=== PATIENT | male | born 1940 | race Caucasian/White ===

== ENCOUNTER 2019-09-29 10:22 | Emergency (ER) | payer MEDICARE, SELFPAY ==
--- NOTE | ~2019-09-29 | XR_ITS ---
EXAMINATION: XR ankle RT 2V INDICATION: Right ankle pain, initial encounter TECHNIQUE: Two views of the right ankle are obtained. COMPARISON: None available FINDINGS: There is an acute, traumatic, closed, comminuted fracture of the calcaneus. Bone alignment is otherwise normal. No additional fracture is identified. IMPRESSION: 1. Comminuted calcaneus fracture. Reviewed, dictated and finalized at location A.
--- NOTE | ~2019-09-29 | XR_ITS ---
EXAMINATION: XR ankle LT 2V DATE: 09/29/2019 11:20 INDICATION: Left foot pain after fall, initial encounter TECHNIQUE: Anteroposterior, lateral, mortise, and additional oblique view of the ankle were obtained. COMPARISON: None. FINDINGS: There is an acute, traumatic, closed, comminuted calcaneus fracture. No additional fracture is identified. The soft tissues are unremarkable. Ankle alignment is normal. IMPRESSION: 1. Comminuted calcaneus fracture. Reviewed, dictated and finalized at location A.
--- NOTE | ~2019-09-29 | XR_ITS ---
EXAMINATION: XR foot LT 2V INDICATION: Left foot pain, initial encounter TECHNIQUE: Two views of the left foot are obtained. COMPARISON: None available FINDINGS: There is an acute, traumatic, closed, comminuted calcaneus fracture. 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 No additional acute osseous findings are evident. IMPRESSION: 1. Comminuted calcaneus fracture. Reviewed, dictated and finalized at location A.
--- NOTE | ~2019-09-29 | XR_ITS ---
EXAMINATION: XR foot RT 2V INDICATION: Right foot pain, initial encounter TECHNIQUE: Two views of the right foot are obtained. COMPARISON: None available FINDINGS: There is an acute, traumatic, closed, comminuted fracture of the calcaneus. No additional a cute osseous abnormality is identified. There is [id number] osteoarthritis in multiple interpha langeal joints. IMPRESSION: 1. Comminuted calcaneus fracture. Reviewed, dictated and finalized at location A.
[2019-09-29 10:28] VITALS: BP 151/97; PULSE 63; RESP 14; TEMP 36.9; O2SAT 100
--- NOTE | 2019-09-29 10:45 | WC.ED.TRAUMA ---
HPI - Trauma General Chief Complaint: Trauma Stated Complaint: FALL Time Seen by Provider: 09/29/19 10:29 History of Present Illness HPI narrative: Patient fell 10 feet off of a ladder today. He has bilateral foot pain and cannot walk. He has no other injuries, no back pain no head trauma. He does not take any prescription medication, he has no medical problems. He does not smoke drink or do drug. Related Data Allergies Allergy/AdvReac Type Severity Reaction Status Date / Time No Known Allergies Allergy Verified 10/25/16 07:02 Review of Systems Review of Systems: Narrative: CONSTITUTIONAL: Denies fever, chills, or sweats. EYES: Denies visual changes, redness, or discharge. ENT: Denies rhinorrhea, congestion, sore throat, or otalgia. CARDIOVASCULAR: Denies chest pain, palpitations, or edema. RESPIRATORY: Denies cough or dyspnea. GASTROINTESTINAL: Denies abdominal pain, nausea, vomiting, or diarrhea. GENITOURINARY: Denies dysuria or hematuria. SKIN: Denies rash or itching. MUSCULOSKELETAL: Denies back pain. NEUROLOGIC: Denies headache, numbness, or weakness. PSYCHIATRIC: Denies anxiety or depression. [facility] [place] Past Medical History Medical History (Updated 09/29/19 @ 12:37 by Jennifer Sarabia MD) Bilateral calcaneal fractures History of amputation of finger Social History Social History (Updated 09/29/19 @ 12:37 by Jennifer Sarabia MD) Smoking status: Never smoker Alcohol intake: never Substance use: never Gender identity (if verbalized by the patient): Male Exam Narrative: Exam Narrative: GENERAL: Well-appearing, well-nourished, and in no acute distress. So sweet. HEAD: Normocephalic, atraumatic. EYES: PERRLA and EOMI. ENT: Nares clear, no rhinorrhea or epistaxis. Mucous membranes moist. NECK: Supple. CHEST: Clear to auscultation. No respiratory distress. HEART: Regular rate and rhythm. No murmur heard. Normal peripheral pulses. ABDOMEN: Soft, nontender, nondistended, normal active bowel sounds. EXTREMITIES: Bilateral foot swelling and bruising at the heels. Pulses intact. Mild edema. No back tenderness, no step-offs. Skin: Warm, dry, no rash. NEURO: No focal deficits. Alert and oriented x3. PSYCH: Normal mood and affect. Course Consultations Consultation #1: Call Dr. pApiah from orthopedics, to see whether he would treat this patient or prefer transfer to a trauma center. He requested transfer to a trauma center. Date: 09/29/19 Time: 11:52 Consultation #2: Called [facility] access line and the nurse transfer me to the ER. I spoke with Dr. malik, and she accepts. She said no splints were necessary. Date: 09/29/19 Time: 12:36 Vital Signs Vital signs: Vital Signs Temperature 98.5 F 09/29/19 10:28 Pulse Rate 63 09/29/19 10:28 Respiratory Rate 14 09/29/19 10:28 Blood Pressure 151/97 H 09/29/19 10:28 Pulse Oximetry 100 09/29/19 10:28 Temperature 98.5 F 09/29/19 10:28 Pulse Rate 63 09/29/19 10:28 Respiratory Rate 14 09/29/19 10:28 Blood Pressure 151/97 H 09/29/19 10:28 Pulse Oximetry 100 09/29/19 10:28 MDM - Trauma MDM Narrative Medical decision making narrative: Bilateral heel fractures. We will send to [facility] for the trauma. Informed the patient and his . Medical Records Attestation: I reviewed the patient's medical records. Imaging Data Radiologist's impression: ITS Impressions Ankle X-Ray 09/29/19 11:31 IMPRESSION: 1. Comminuted calcaneus fracture. Foot X-Ray 09/29/19 11:33 IMPRESSION: 1. Comminuted calcaneus fracture. Ankle X-Ray 09/29/19 11:34 IMPRESSION: 1. Comminuted calcaneus fracture. Foot X-Ray 09/29/19 11:35 IMPRESSION: 1. Comminuted calcaneus fracture. Discharge Plan Discharge Clinical Impression: Bilateral calcaneal fractures Qualifiers: Encounter type: initial encounter Fracture type: closed Qualified Code(s): S92.001A - Unspecified fracture of right calcaneus, initial encounter for cl
[2019-09-29] MEDS: MORPHINE SULFATE 4 MG/ML INJ IV PUSH (11:18)
[2019-09-29 12:40] VITALS: BP 133/68; PULSE 75; RESP 15; O2SAT 100
[2019-09-29 15:20] VITALS: BP 130/77; PULSE 65; O2SAT 99
== END 2019-09-29 15:22 | disposition short-term general hospital (02) ==
PROVIDERS: Emergency Provider Emergency Medicine; PCP Family Medicine Adolescent Medicine
DX: S92.001A Unspecified fracture of right calcaneus, initial encounter for closed fracture (principal); S92.002A Unspecified fracture of left calcaneus, initial encounter for closed fracture; Z89.029 Acquired absence of unspecified finger(s); W10.9XXA Fall (on) (from) unspecified stairs and steps, initial encounter
CPT/HCPCS: 73600; 73620; 96374; 99285; J2270

== ENCOUNTER → 2021-01-06 00:23 | Outpatient (CLI) | payer MEDICARE, SELFPAY ==
[2021-01-06 16:56] LABS: SARS-CoV-2 RNA PCR Negative
== END ==
PROVIDERS: PCP Family Medicine Adolescent Medicine; Visit Provider Physician Assistant
DX: Z20.822 Contact with and (suspected) exposure to COVID-19 (principal); R50.9 Fever, unspecified; R53.83 Other fatigue
CPT/HCPCS: C9803; U0003; U0005

== ENCOUNTER 2021-02-18 12:01 | Outpatient (CLI) | payer MEDICARE, SELFPAY ==
--- NOTE | ~2021-02-18 | XR_ITS ---
EXAMINATION: XR chest 2V DATE: 02/18/2021 12:44 INDICATION: Fatigue, leukocytosis TECHNIQUE: PA and lateral views of the chest are obtained. COMPARISON: 10/25/2016 FINDINGS: The lungs are free of acute opacities. There is no pleural effusion or pneumothorax. The ca rdiomediastinal silhouette is normal. There is mild thoracic spondylosis. IMPRESSION: 1. No acute cardiopulmonary abnormality. Reviewed, dictated and finalized at location B.
--- NOTE | ~2021-02-18 | US_ITS ---
EXAMINATION: US carotid duplex BI EXAM DATE: 02/18/2021 13:33 INDICATION: Vertigo. TECHNIQUE: Grayscale, color and pulsed Doppler images of the cervical carotid arteries were obtained . The degree of vessel stenosis is placed in one of the following categories: normal, <50% stenosis, 50-69% stenosis, >=70% stenosis but less than near-occlusion, near-occlusion, or occlusion. Note that percent stenosis relative to normal distal artery lumen diameter is indirectly measured from velocit y measurements as described by Huseyin, et al. Radiology 2003; 229:340-346. There is no prior study fo r comparison. FINDINGS: RIGHT SIDE: Right common carotid artery peak systolic velocity (PSV in cm/s): 55 Right bulb/internal carotid artery peak systolic velocity (PSV in cm/s): 85 Right internal carotid artery end diastolic velocity (EDV in cm/s): 29 Right ICA/CCA peak systolic ratio: 1.6 Right external carotid artery peak systolic velocity (PSV in cm/s): 119 Right vertebral artery antegrade flow: yes There is no focal plaque identified. LEFT SIDE: Left common carotid artery peak systolic velocity (PSV in cm/s): 56 Left bulb/internal carotid artery peak systolic velocity (PSV in cm/s): 102 Left internal carotid artery end diastolic velocity (EDV in cm/s): 42 Left ICA/CCA peak systolic ratio: 1.8 Left external carotid artery peak systolic velocity (PSV in cm/s): 60 Left vertebral artery antegrade flow: yes There is no focal plaque identified. IMPRESSION: 1. Normal right internal carotid artery. 2. Normal left internal carotid artery. > Reviewed, dictated and finalized at location A.
== END 2021-02-18 12:02 | disposition home or self-care (01) ==
LOC: ANHIMG 12:12
PROVIDERS: PCP Family Medicine Adolescent Medicine; Visit Provider Family Medicine Adolescent Medicine
DX: R53.83 Other fatigue (principal); D72.829 Elevated white blood cell count, unspecified; R42 Dizziness and giddiness
CPT/HCPCS: 71046; 93880